=== PATIENT | female | born 1955 | race Caucasian/White ===

== ENCOUNTER 2018-03-11 15:30 | Emergency (ER) | payer MEDICARE, MEDICAID, SELFPAY ==
[2018-03-11 15:44] VITALS: BP 135/66; PULSE 94; RESP 16; TEMP 36.6; O2SAT 100
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
--- NOTE | 2018-03-11 16:05 | DI.REPORT_ITS ---
SYMPTOM/DIAGNOSIS: FALL PAIN ALONG RT SIDE OF MID THORACIC SPINE LEFT HUMERUS: The humeral head is not ideally imaged. There is mild artifact. No fracture is identified. Degenerative changes are seen at the elbow and glenoid. IMPRESSION: Degenerative changes. No acute abnormality. THORACIC SPINE: AP and cross table lateral views are performed. The lateral views are suboptimal due to patient arm positioning over the spine. No gross fracture is identified. Degenerative changes are noted greatest on the right side of the spine in the mid to lower thoracic region. The visualized portions of the lungs appear clear. IMPRESSION: A limited exam. No gross evidence of a fracture.
[2018-03-11] MEDS: oxyCODONE 5 MG TAB PO (16:48)
--- NOTE | 2018-03-11 17:38 | DI.VRAD_ITS ---
EXAM: XR Thoracic Spine, 3 Views CLINICAL HISTORY: 62 years old, female; Pain and injury or trauma; Fall; Initial encounter; Blunt trauma (contusions or hematomas); Pain in thoracic spine; Other: Mid thoracicspine; Injury date: 03/11/2018 TECHNIQUE: Frontal, lateral and swimmer's views of the thoracic spine. COMPARISON: No relevant prior studies available. FINDINGS: Vertebrae: Slightly suboptimal evaluation of the thoracic spine on the lateral exam secondary to crosstable technique. No displaced fracture or subluxation identified. If there is a continued clinical concern for thoracic spine fracture then assessed with CT scan should be considered. Disc spaces: Mild degenerative changes throughout the thoracic spine. Soft tissues: Unremarkable. IMPRESSION: No fracture identified. Slightly suboptimal examination secondary to crosstable lateral technique. If there is a continued clinical concern for thoracic fracture then assessed with CT scan should be considered. Dictated and Authenticated by: Robert Estrada MD. Ordering:IONA PUTNAM MD
--- NOTE | 2018-03-11 17:41 | DI.VRAD_ITS ---
EXAM: XR Left Humerus, 2 or More Views CLINICAL HISTORY: 62 years old, female; Injury or trauma; Fall; Initial encounter; Sprain or strain; Humerus; Left; Injury date: 03/11/2018 TECHNIQUE: Frontal and lateral views of the left humerus. COMPARISON: CR - RIGHT HUMERUS 2017-03-20 05:29 FINDINGS: Bones/joints: Tiny lucent line at the coronoid process of the ulna seen on the AP view may be secondary to a nondisplaced fracture. Correlate clinically with pain at the site. No other evidence of fracture or dislocation is seen. Soft tissues: Unremarkable. IMPRESSION: Tiny lucent line at the coronoid process of the ulna seen on the AP view may be secondary to a nondisplaced fracture. Dictated and Authenticated by: Robert Estrada MD. Ordering:IONA PUTNAM MD
--- NOTE | 2018-03-11 17:48 | DI.RPTCT_ITS ---
SYMPTOMS/DIAGNOSIS: SEVERE MIDLINE PAIN OVER T5-T7 S/P FALL CT OF THE THORACIC AND LUMBAR SPINE: CT OF THE THORACIC SPINE: Comparison is made with plain films of the thoracic spine dated March,. There is no evidence of fracture. There are degenerative disc changes with osteophytes seen greater on the right side on the mid to lower thoracic levels. There is no paraspinal hematoma. No rib fractures identified. The visualized portions of the lungs appear clear. IMPRESSION: Degenerative changes. No acute abnormality. CT OF THE LUMBAR SPINE: There is no evidence of an acute fracture. There are degenerative disc changes at L2-3 through L4-5. There are facet joint degenerative changes at the same levels. There is mild anterolisthesis at L3-4, secondary to degenerative changes. Endplate osteophytes are seen at these levels. There is mild disc bulging. There is a degenerative scoliosis that is mild.
--- NOTE | 2018-03-11 18:45 | DI.VRAD_ITS ---
EXAM: CT Thoracic Spine Without Intravenous Contrast CLINICAL HISTORY: 62 years old, female; Pain; Other: Mid back jennifer; Pain in thoracic spine TECHNIQUE: Axial computed tomography images of the thoracic spine without intravenous contrast. Coronal and sagittal reformatted images were created and reviewed. COMPARISON: No relevant prior studies available. FINDINGS: Vertebrae: Degenerative disc disease and facet arthrosis within the visualized portions of the cervical spine. Mild degenerative spondylosis of the thoracic spine. No fracture. No subluxation. Discs/spinal canal/neural foramina: See above. Soft tissues: Unremarkable. Gallbladder and bile ducts: Status post cholecystectomy. Other findings: Normal bone density. IMPRESSION: 1. Degenerative spondylosis of the cervical and thoracic spine. 2. No fracture. EXAM: CT Lumbar Spine Without Intravenous Contrast CLINICAL HISTORY: 62 years old, female; Pain; Other: Mid back jennifer; Pain in thoracic spine TECHNIQUE: Axial computed tomography images of the lumbar spine without intravenous contrast. Coronal and sagittal reformatted images were created and reviewed. COMPARISON: CR - THORACIC SPINE 2018-03-11 16:57 FINDINGS: Vertebrae: Mild scoliosis of the lumbar spine. Degenerative disc disease and facet arthrosis throughout the lumbar spine. Minimal retrolisthesis of L3, likely degenerative. No fracture. Discs/spinal canal/neural foramina: See above. Soft tissues: Unremarkable. Gallbladder and bile ducts: Status post cholecystectomy. IMPRESSION: 1. Degenerative spondylosis of the lumbar spine. 2. Minimal retrolisthesis of L3, likely degenerative. 3. No fracture. Dictated and Authenticated by: Robert Estrada MD. Ordering:IONA PUTNAM MD
== END 2018-03-11 19:15 | disposition home or self-care (01) ==
PROVIDERS: Emergency Provider Emergency Medicine; PCP Family Medicine
DX: S20.222A Contusion of left back wall of thorax, initial encounter (principal); S40.022A Contusion of left upper arm, initial encounter; Y04.2XXA Assault by strike against or bumped into by another person, initial encounter; I10 Essential (primary) hypertension; E11.9 Type 2 diabetes mellitus without complications; Z79.84 Long term (current) use of oral hypoglycemic drugs
CPT/HCPCS: 72072; 72128; 72131; 73060; 93005; 99284; 99285; 93010

== ENCOUNTER → 2018-03-24 11:10 | Outpatient (REF) | payer MEDICARE, MEDICAID, SELFPAY ==
--- NOTE | 2018-03-24 11:10 | PAPFT_PTH ---
PATIENT: Yecenia Rosenberg LOC: [facility] U#:[id number] AGE/SX: 69/F ROOM: RE03/24/[address]: ANUJA White : 1955 BED: DIS: SPEC #: [id number] RECD: 03/27/18 12:50 STATUS: SEAN REQ #: [id number] ANTOINE: 03/24/18 11:[address]: Ami Valencia DEPT: [facility], [facility] Cytology RECD BY: Sheri Santacruz ENTERED: 03/27/18 12:50 SP TYPE: PAPFT OTHR DR: Alexis Leal MD Tissues: 1 - CX/ENDOCX FOR PAP SMEARS Procedures: PAP THIN PREP/[facility] Screening Comments: [id number]
== END ==
LOC: LBN 11:10
PROVIDERS: PCP Family Medicine; Visit Provider Nurse Practitioner Family
DX: Z12.4 Encounter for screening for malignant neoplasm of cervix (principal)
CPT/HCPCS: 88142

== ENCOUNTER 2018-04-13 10:52 | Outpatient (CLI) | payer MEDICARE, MEDICAID, SELFPAY ==
[2018-04-13 13:04] LABS: Hemoglobin A1C 8.1 % (4.5-6.2)
== END 2018-04-13 11:12 ==
PROVIDERS: PCP Family Medicine; Visit Provider Family Medicine
DX: E11.9 Type 2 diabetes mellitus without complications (principal)
CPT/HCPCS: 36415; 83036

== ENCOUNTER 2018-06-02 00:24 | Outpatient (CLI) | payer MEDICARE, MEDICAID, SELFPAY ==
--- NOTE | 2018-06-02 09:25 | DI.MAMMO_ITS ---
SYMPTOM/DIAGNOSIS: SCREENING, Z12.31 MAMMOGRAM: Mammograms were interpreted according to the usual protocol including computer analysis with CAD system, tomosynthesis and C view imaging. Comparison with prior examinations. Breast density A. No masses or microcalcifications are seen. There is nothing to suggest malignancy. IMPRESSION: Negative mammogram. Routine screening is recommended. Category I. MQSA ASSESSMENT OF FINDINGS: Negative. Category 1. Patient will receive a letter notifying them of these results. BI-RAD category A. The breasts are almost entirely fatty.
== END 2018-06-02 00:44 ==
PROVIDERS: PCP Family Medicine; Visit Provider Family Medicine
DX: Z12.31 Encounter for screening mammogram for malignant neoplasm of breast (principal)
CPT/HCPCS: 77063; 77067

== ENCOUNTER 2018-06-30 10:27 | Outpatient (CLI) | payer MEDICARE, MEDICAID, SELFPAY ==
--- NOTE | 2018-06-30 10:42 | DI.RAD_ITS ---
SYMPTOM/DIAGNOSIS: RT KNEE PAIN, LOCKING RIGHT KNEE: Three views were obtained. There is minimal hypertrophic spurring of the bones of the knee. Cartilaginous joint spaces appear fairly well maintained. No other bony abnormality is seen.
== END 2018-06-30 10:47 ==
PROVIDERS: PCP Family Medicine; Referring Provider Family Medicine; Visit Provider Student in an Organized Health Care Education/Training Program
DX: M25.561 Pain in right knee (principal); M23.91 Unspecified internal derangement of right knee; M75.102 Unspecified rotator cuff tear or rupture of left shoulder, not specified as traumatic
CPT/HCPCS: 73562; 99213; 99214

== ENCOUNTER 2018-07-06 00:22 | Outpatient (CLI) | payer MEDICARE, MEDICAID, SELFPAY ==
--- NOTE | 2018-07-06 13:59 | DI.MRI_ITS ---
SYMPTOMS/DIAGNOSIS: RIGHT KNEE INTERNAL DERANGEMENT, M23.91 MRI OF THE RIGHT KNEE: Comparison is made with June,. Fat-suppressed T2 axial, T1 and fat- suppressed T2 coronal, proton density and fat suppressed T2 sagittal and proton density oblique sagittal sequences were performed. There is edema around the anterior cruciate ligament, which appears disrupted near the femoral attachment. There is some waviness of the posterior cruciate ligament, but no evidence of abnormal signal. The collateral ligaments and extensor mechanisms appear intact. Both menisci appear peripherally displaced, consistent with degenerative changes. There is some amorphous signal in the body of the lateral meniscus, which could be degenerative. No focal meniscal tears identified. There are small lobulated fluid collections near the medial meniscus, which could represent meniscal cysts. An additional meniscal cyst or ganglion is seen posterior to the posterior cruciate ligament. There is some edema in the subcutaneous fat anteriorly. IMPRESSION: ACL tear. Degenerative changes of the menisci, lateral greater than medial. No definite meniscal tear is seen. There is no evidence of a bony contusion.
== END 2018-07-06 00:42 ==
PROVIDERS: PCP Family Medicine; Visit Provider Physician Assistant
DX: M23.91 Unspecified internal derangement of right knee (principal); S83.511A Sprain of anterior cruciate ligament of right knee, initial encounter; M17.11 Unilateral primary osteoarthritis, right knee; M25.561 Pain in right knee
CPT/HCPCS: 73721

== ENCOUNTER 2018-08-26 15:09 | Emergency (ER) | payer MEDICARE, MEDICAID, SELFPAY ==
[2018-08-26 15:39] VITALS: BP 123/72; PULSE 78; RESP 17; TEMP 36.3; O2SAT 93
--- NOTE | 2018-08-26 17:33 | ED.GENADUL_ITS ---
Discharge Plan Disposition Patient Disposition: HOME Discharge Details Chief Complaint: RespSymp Clinical Impression: Influenza-like illness Reason For Visit: resp illness Primary Care Provider: Alexis Leal ED Provider: Kofi Crooks Home Meds and New Rx's Prescriptions: New albuterol sulfate 90 mcg/actuation HFA aerosol inhaler 1 puff IH Q4H PRN (Reason: shortness of breath or wheezing) Qty: 6.7 RF: 0 Continued metformin [Glucophage] 500 mg tablet 500 mg PO BID Qty: 180 RF: 4 OneTouch Ultra Test 1 EACH strip 1 strip Miscellaneous DAILY Qty: 100 RF: 3 lancets [OneTouch UltraSoft Lancets] 1 EACH misc 1 unit Sub-Q DAILY Qty: 100 RF: 3 glipizide 10 mg tablet extended release 24hr 20 mg PO DAILY Qty: 90 RF: 4 venlafaxine 75 mg capsule,extended release 24hr 75 mg PO DAILY Qty: 90 RF: 4 amlodipine 5 mg tablet 5 mg PO DAILY Qty: 90 RF: 4 chlorthalidone 25 mg tablet 25 mg PO DAILY Qty: 90 RF: 4 pravastatin [Pravachol] 40 mg tablet 40 mg PO DAILY Qty: 90 RF: 4 No Action benzonatate [Tessalon Perles] 100 mg capsule 100 mg PO TID PRN (Reason: cough) Qty: 14 RF: 0 Discharge Instructions Instructions: Influenza (ED) Additional Instructions: Please drink plenty of fluids to stay hydrated. Allow for plenty of rest. Please follow-up with your primary care physician. Call for an appointment. Return to the emergency department immediately for any worsening or new concerning symptoms. Referrals: Alexis Leal MD [Primary Care Provider] - Discharge Data Discharge Date/Time-TO BE ENTERED AT DEPARTURE: 08/26/18 18:00 Medical Decision Making 62-year-old female with history of diabetes and hypertension here with body aches, cough and congestion over the past 6 days. Patient notes that her significant other was recently tested positive for flu. Her daughter is also sick with same syndrome. Patient is saturating well in no respiratory distress. No signs of pneumonia. I suspect the patient has influenza. She is outside window for Tamiflu. Supportive care was advised. She does note that she has had some intermittent wheeze. I will prescribe albuterol inhaler. Usual and customary discharge instructions were provided. Patient was encouraged to follow-up with her primary care physician and to return should have any worsening or new concerning symptoms per HPI General Mode of arrival: ambulatory . Date/Time Provider Initiated Documentation: 08/26/18 17:15 . Limitations to Documentation: no limitations . Information obtained by: patient . HPI Narrative: 62-year-old female with history of diabetes and hypertension here with body aches, cough and congestion over the past 6 days. Patient notes that her significant other was recently tested positive for flu. Her daughter is also sick with same syndrome. Symptoms are moderate. No modifiers. She has had some interrmittent wheeze. No SOB currently. Related Data Home Medications Medication Instructions Recorded Confirmed OneTouch Ultra Test #100 strip 06/17/14 09/01/18 lancets [OneTouch UltraSoft #100 ea 06/17/14 09/01/18 Lancets] metformin 500 mg tablet 500 mg PO BID #180 tab 04/13/18 09/01/18 glipizide ER 10 mg tablet, 20 mg PO DAILY #90 tab-cap 06/29/18 09/01/18 extended release 24 hr venlafaxine ER 75 mg 75 mg PO DAILY #90 tab-cap 06/29/18 09/01/18 capsule,extended release 24 hr amlodipine 5 mg tablet 5 mg PO DAILY #90 tab-cap 07/11/18 09/01/18 chlorthalidone 25 mg tablet 25 mg PO DAILY #90 tab-cap 07/11/18 09/01/18 pravastatin 40 mg tablet 40 mg PO DAILY #90 tab-cap 07/12/18 09/01/18 albuterol sulfate 1 puff IH Q4H PRN #6.7 gm 08/26/18 09/01/18 benzonatate 100 mg capsule 100 mg PO TID PRN #14 cap 09/01/18 09/01/18 Previous Rx's Medication Instructions Recorded metformin 500 mg tablet 500 mg PO BID #180 tab 04/13/18 glipizide ER 10 mg tablet, 20 mg PO DAILY #90 tab-cap 06/29/18 extended release 24 hr venlafaxine ER 75 mg 75 mg PO DAILY #90 tab-cap 06/29/18 capsule,extended release 24 hr amlodipine 5 mg tablet 5 mg PO DAILY #90 tab-cap 07/11/18 chlorthalidone 25 mg tablet 25 mg PO DAILY #90 tab-cap 07/11/18 pravastatin 40 mg tablet 40 mg PO DAILY #90 tab-cap 07/12/18 albuterol sulfate 1 puff IH Q4H PRN #6.7 gm 08/26/18 benzonatate 100 mg capsule 100 mg PO TID PRN #14 cap 09/01/18 Allergies Allergy/AdvReac Type Severity Reaction Status Date / Time Penicillins Allergy Severe Unverified 09/01/18 10:27 Tetanus Vaccines and Toxoid Allergy Intermediate Unverified 09/01/18 10:27 [Tetanus Vaccines & Toxoid] lisinopril AdvReac Intermediate COUGH Unverified 09/01/18 10:27 General Stated Complaint: RespSymp NICOLE: 4 Review of Systems Review of Systems All systems reviewed & are unremarkable except as noted in HPI and below PFSH Medical History Left rotator cuff tear (Chronic) Tear of right rotator cuff (Chronic 06/10/17) Skin sensation disturbance (Chronic) Low back pain (Chronic 06/30/03) 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 Father No problems noted. Sister Diabetes Brother Heart disease Social History what type of physical activity do you participate in: none Smoking and Tabacco status: Never alcohol intake: never additional social history: Decreased vision Exam Const General: cooperative and no acute distress HENMT Head: normocephalic and atraumatic Mouth: moist mucous membranes Eyes Conjunctivae: normal conjunctivae Sclera: normal sclerae EOM: EOM intact bilaterally Neck Neck: trachea midline and supple Resp Effort & Inspection: normal respiratory effort, able to speak in complete sentences and no respiratory distress Auscultation: clear to auscultation bilaterally, no rales, no rhonchi and no w heezes Cardio Jugular venous pressure: no JVD Rate: regular rate and not tachycardic Rhythm: regular rhythm GI Palpation: soft, not firm, no guarding, no masses, not rigid and nontender Skin General skin exam: no rashes or lesions noted Neuro General: alert, awake, oriented x3 and tone normal Extrem General: no edema Psych Appearance: grossly normal Mental Status: mental status grossly normal Speech and Movement: speech and movement normal Course Vital Signs Temperature 36.3 C L 08/26/18 15:39 Pulse 78 08/26/18 15:39 Respiratory Rate 17 08/26/18 15:39 Blood Pressure 123/72 08/26/18 15:39 Pulse Oximetry 93 L 08/26/18 15:39 Temperature 36.3 C L 08/26/18 15:39 Temperature Source Temporal Artery Scan 08/26/18 15:39 Pulse 78 08/26/18 15:39 Respiratory Rate 17 08/26/18 15:39 Respiratory Effort 08/26/18 15:42 Blood Pressure 123/72 08/26/18 15:39 Pulse Oximetry 93 L 08/26/18 15:39 Oxygen Delivery Method Room Air 08/26/18 15:39 Oxygen Flow Rate 0 08/26/18 15:39
== END 2018-08-26 18:00 | disposition home or self-care (01) ==
PROVIDERS: Emergency Provider Student in an Organized Health Care Education/Training Program; PCP Family Medicine
DX: R05 Cough (principal); J11.1 Influenza due to unidentified influenza virus with other respiratory manifestations; E11.9 Type 2 diabetes mellitus without complications; Z79.84 Long term (current) use of oral hypoglycemic drugs; I10 Essential (primary) hypertension
CPT/HCPCS: 36416; 82947; 82962; 99283

== ENCOUNTER 2018-11-07 09:44 | Outpatient (CLI) | payer MEDICARE, MEDICAID, SELFPAY ==
--- NOTE | 2018-11-07 09:10 | DI.RAD_ITS ---
SYMPTOM/DIAGNOSIS: RT HIP PAIN,M25.551 RIGHT HIP AND PELVIS: Two views. The right hip joint is well maintained. The bones are intact and normally mineralized. The sacroiliac joints and symphysis pubis are unremarkable. Mild degenerative changes are seen at the L 4-5 disc space. Mild degenerative changes are seen in the left hip. IMPRESSION: Negative right hip. Mild degenerative changes in the lumbar spine and left hip.
[2018-11-07 12:48] LABS: Hemoglobin A1C 7.9 % (4.5-6.2)
== END 2018-11-07 10:04 ==
PROVIDERS: PCP Family Medicine; Visit Provider Family Medicine
DX: M25.551 Pain in right hip (principal); E11.9 Type 2 diabetes mellitus without complications
CPT/HCPCS: 36415; 73502; 83036

== ENCOUNTER 2019-05-17 07:00 | Outpatient (CLI) | payer OTHER, MEDICAID, SELFPAY ==
[2019-05-17 13:27] LABS: Anion Gap 10.6 mmol/L (3-11); BUN 13 mg/dL (7-18); CO2 30.4 mmol/L (21.0-32.0); Calcium 9.4 mg/dL (8.5-10.1); Chloride 97 mmol/L (98-107); Glucose 337 mg/dL (70-100); Potassium 3.4 mmol/L (3.5-5.1); Sodium 138 mmol/L (136-145)
== END 2019-05-17 07:20 ==
PROVIDERS: PCP Family Medicine; Visit Provider Family Medicine
DX: I10 Essential (primary) hypertension (principal)
CPT/HCPCS: 36415; 80048

== ENCOUNTER 2019-07-08 12:46 | Emergency (ER) | payer OTHER, MEDICAID, SELFPAY ==
[2019-07-08 12:49] VITALS: BP 130/84; PULSE 78; TEMP 36.5; O2SAT 97
--- NOTE | 2019-07-08 13:10 | ED.GENADUL_ITS ---
Discharge Plan Disposition Patient Disposition: HOME Condition: Stable Discharge Details Chief Complaint: Orthopedic Clinical Impression: Fracture of distal end of fibula Primary Care Provider: Alexis Leal ED Provider: Blaine Marcus Home Meds and New Rx's Prescriptions: No Action (DME) FreeStyle Kb 14 Day [place] Misc See Rx Instructions .ROUTE .MEDSUPPLY Qty: 1 RF: 4 (DME) FreeStyle Kb 14 Day Sensor Kit See Rx Instructions .ROUTE .MEDSUPPLY Qty: 1 RF: 6 (DME) lancets [OneTouch UltraSoft Lancets] 1 EACH misc 1 unit Sub-Q DAILY Qty: 100 RF: 3 venlafaxine 75 mg capsule,extended release 24hr 75 mg PO DAILY Qty: 90 RF: 4 amlodipine 5 mg tablet 5 mg PO DAILY Qty: 90 RF: 4 chlorthalidone 25 mg tablet 25 mg PO DAILY Qty: 90 RF: 4 pravastatin [Pravachol] 40 mg tablet 40 mg PO DAILY Qty: 90 RF: 4 gabapentin 100 mg capsule 100 mg PO TID Qty: 270 RF: 4 glipizide 10 mg tablet extended release 24hr 20 mg PO DAILY Qty: 90 RF: 4 potassium chloride 10 mEq tablet extended release 10 meq PO DAILY Qty: 90 RF: 4 (DME) blood-glucose meter [OneTouch Ultra2 Meter] Kit See Rx Instructions .ROUTE .MEDSUPPLY Qty: 1 RF: 0 (DME) OneTouch Ultra Blue Test Strip Strip See Rx Instructions .ROUTE .MEDSUPPLY Qty: 100 RF: 4 (DME) lancets [OneTouch Delica Lancets] 33 gauge misc See Rx Instructions .ROUTE DAILY Qty: 100 RF: 4 acyclovir 200 mg capsule 200 mg PO Q4H PRN (Reason: Herpes labialis) Qty: 35 RF: 6 metformin [Glucophage] 500 mg tablet 500 mg PO BID Qty: 180 RF: 4 albuterol sulfate 90 mcg/actuation HFA aerosol inhaler 1 puff IH Q4H PRN (Reason: shortness of breath or wheezing) Qty: 6.7 RF: 0 cyclobenzaprine 10 mg tablet 10 mg PO PRN PRN (Reason: muscle spasm) RF: 0 Discharge Instructions Instructions: Leg Fracture (ED) Additional Instructions: 1. Drink plenty of fluids. 2. Continue all medications as prescribed. 3. Acetaminophen 1000mg every 4 hours (up to 5 time a day) and/or ibuprofen 600mg every 6 hours as needed for fever or pain. 4. Wear Ortho walking boot until orthopedic follow-up. 5. Use crutches to avoid weightbearing. 6. Follow-up next week with Dr. faust Return to the Emergency Department (ED) if your condition worsens, does not improve as expected, or for ANY other concerns. Specifically, return if you have new or uncontrolled pain, worsening fever, difficulty breathing, vomiting, or are unable to drink fluids. Referrals: Turner Faust MD [ [facility] STAFF PHYSICIAN] - Medical Decision Making 63-year-old woman with a past medical history which includes diabetes and hypertension presents with acute left ankle pain after a mechanical fall. Exam significant for left lateral malleolus tenderness and associated soft tissue swelling. X-ray ordered and diagnostic for a displaced spiral oblique fracture of the distal fibula. Discussed findings with patient and her partner. Placed in an orthopedic walking boot and discharged home with a plan for outpatient orthopedic follow-up. Given usual and customary return instructions at time of discharge. Medical Records Medical records reviewed: Yes I reviewed the patient's medical records. Imaging Data Radiologic Study: Attestation: I personally reviewed and interpreted this imaging study as follows: Imaging: X-Ray (Left ankle) My impression: Displaced, spiral oblique distal fibular fracture Radiologist's impression: Same HPI 63-year-old woman with a past medical history which includes depression, diabetes, diabetic retinopathy, hypertension, and chronic low back pain. Presents with acute left ankle pain associated with tripping and falling at home. Describes carrying a heavy bag and inadvertently catching her left foot in a stationary object. She fell with her ankle initially inverting. She had immediate pain of the lateral portion of her ankle and was unable to bear weight without significant discomfort. Denies other significant injuries including no head impact, neck pain, other extremity injuries, chest pain, abdominal pain, or focal extremity weakness. General Date/Time Provider Initiated Documentation: 07/08/19 13:07 . Related Data Home Medications Medication Instructions Recorded Confirmed lancets [OneTouch UltraSoft #100 ea 06/17/14 05/17/19 Lancets] venlafaxine 75 mg capsule,extended 75 mg PO DAILY #90 tab-cap 06/29/18 07/08/19 release 24 hr amlodipine 5 mg tablet 5 mg PO DAILY #90 tab-cap 07/11/18 07/08/19 chlorthalidone 25 mg tablet 25 mg PO DAILY #90 tab-cap 07/11/18 07/08/19 pravastatin 40 mg tablet 40 mg PO DAILY #90 tab-cap 07/12/18 07/08/19 albuterol sulfate 1 puff IH Q4H PRN #6.7 gm 08/26/18 07/08/19 gabapentin 100 mg capsule 100 mg PO TID #270 cap 02/06/19 07/08/19 glipizide 10 mg tablet, extended 20 mg PO DAILY #90 tab-cap 04/17/19 07/08/19 release 24 hr flash glucose scanning reader #1 each 05/17/19 05/17/19 flash glucose sensor #1 each 05/17/19 05/17/19 potassium chloride 10 mEq 10 meq PO DAILY #90 tab 05/17/19 07/08/19 tablet,extended release blood sugar diagnostic #100 each 05/18/19 blood-glucose meter #1 each 05/18/19 lancets 33 gauge #100 each 05/18/19 acyclovir 200 mg capsule 200 mg PO Q4H PRN #35 cap 06/05/19 07/08/19 metformin 500 mg tablet 500 mg PO BID #180 tab 06/26/19 07/08/19 cyclobenzaprine 10 mg PO PRN PRN 07/08/19 07/08/19 Previous Rx's Medication Instructions Recorded venlafaxine 75 mg capsule,extended 75 mg PO DAILY #90 tab-cap 06/29/18 release 24 hr amlodipine 5 mg tablet 5 mg PO DAILY #90 tab-cap 07/11/18 chlorthalidone 25 mg tablet 25 mg PO DAILY #90 tab-cap 07/11/18 pravastatin 40 mg tablet 40 mg PO DAILY #90 tab-cap 07/12/18 albuterol sulfate 1 puff IH Q4H PRN #6.7 gm 08/26/18 gabapentin 100 mg capsule 100 mg PO TID #270 cap 02/06/19 glipizide 10 mg tablet, extended 20 mg PO DAILY #90 tab-cap 04/17/19 release 24 hr flash glucose scanning reader #1 each 05/17/19 flash glucose sensor #1 each 05/17/19 potassium chloride 10 mEq 10 meq PO DAILY #90 tab 05/17/19 tablet,extended release blood sugar diagnostic #100 each 05/18/19 blood-glucose meter #1 each 05/18/19 lancets 33 gauge #100 each 05/18/19 acyclovir 200 mg capsule 200 mg PO Q4H PRN #35 cap 06/05/19 metformin 500 mg tablet 500 mg PO BID #180 tab 06/26/19 Allergies Allergy/AdvReac Type Severity Reaction Status Date / Time Penicillins Allergy Severe Unverified 07/08/19 12:54 Tetanus Vaccines and Toxoid Allergy Intermediate Unverified 07/08/19 12:54 [Tetanus Vaccines & Toxoid] lisinopril AdvReac Intermediate COUGH Unverified 07/08/19 12:54 General Stated Complaint: Orthopedic NICOLE: 4 Review of Systems All systems reviewed & are unremarkable except as noted in HPI and below PFSH Medical History Carpal tunnel syndrome (Chronic) right Depressive disorder (Chronic) Diabetes mellitus (Chronic 11/30/12) Diabetic retinopathy (Chronic 06/30/06) Essential hypertension (Chronic 04/30/13) Hyperlipidemia (Chronic) 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) Left rotator cuff tear (Chronic) MRI on 03/28/18 shows full-thickness tear of anterior supraspinatus Low back pain (Chronic 06/30/03) Occult blood in stools (Inactive 06/30/06) Other dislocation of right shoulder joint, initial encounter (Inactive 03/28/17) Skin sensation disturbance (Chronic) right foot Tear of right rotator cuff (Chronic 06/10/17) Surgical History Cholecystectomy (~1995) History of bilateral ligation of fallopian tubes (Inactive) Ligation of fallopian tube Open Carpal Tunnel release Status post carpal tunnel release (Inactive) Status post cholecystectomy (Inactive) Status post tonsillectomy and adenoidectomy (Inactive) Tonsillectomy and adenoidectomy Family History Mother No problems noted. Father No problems noted. Sister Diabetes Brother Heart disease Social History Smoking/Tobacco Use Status: Never Alcohol Intake: never Drug use: Never What type of physical activity do you participate in: none Do you feel safe in your relationship?: Yes Additional Social history: Decreased vision Exam Narrative Exam Narrative: Nursing note and vital signs have been reviewed and noted. GENERAL: alert, active, no acute distress, well -hydrated, well-nourished HEENT: atraumatic/normocephalic, PERRLA, EOMI, conjunctiva clear, external ears/canals normal, nasal mucosa normal NECK: supple, full range of motion CARDIOVASCULAR: nl pulses, no edema PULMONARY: nl effort, no audible wheezing or stridor ABDOMEN: non-distended EXTREMITY: normal muscle tone, all joints normal except for left ankle and lower extremity:. No proximal fibular tenderness, no Achilles tenderness, no medial malleoli tenderness or swelling, no fifth metatarsal tenderness. No lateral posterior malleoli tenderness. However significant soft tissue swelling and anterior tenderness along the ATFL. NUERO: normal mentation, moving all extremities, normal stance and gait, PSYCH: alert and oriented SKIN: no new rashes or lesions Course Vital Signs Vital signs: Vital Signs Temperature 97.7 F 07/08/19 12:49 Pulse 78 07/08/19 12:49 Blood Pressure 130/84 07/08/19 12:49 Pulse Oximetry 97 07/08/19 12:49 Temperature 97.7 F 07/08/19 12:49 Temperature Source Skin 07/08/19 12:49 Pulse 78 07/08/19 12:49 Respiratory Effort Non-Labored 07/08/19 12:58 Blood Pressure 130/84 07/08/19 12:49 Blood Pressure Position Sitting 07/08/19 12:49 Pulse Oximetry 97 07/08/19 12:49 Oxygen Delivery Method Room Air 07/08/19 12:49 Oxygen Flow Rate 0 07/08/19 12:49 Pain Level 8 07/08/19 12:58
--- NOTE | 2019-07-08 13:25 | DI.RAD_ITS ---
EXAM: XR ANKLE LT COMPLETE INDICATION: Left ankle pain and swelling after fall/inversion. COMPARISON: No exams were available for comparison TECHNIQUE: 2D digital imaging was performed. FINDINGS: There is a fracture seen extending obliquely through the lateral malleolus to the level of the ankle mortise. There may be slight widening of the medial ankle mortise. No distal tibial fractures are id entified. No talar dome defect is seen. There are mild underlying degenerative changes. There are prominent heel spurs. IMPRESSION: Mildly displaced fracture of the lateral malleolus with slight widening of the medial ankle mortise.
--- NOTE | 2019-07-08 13:57 | DI.VRAD_ITS ---
PROCEDURE INFORMATION: Exam: XR Left Ankle Exam date and time: 07/08/2019 1:09 PM Age: 63 years old Clinical history: Injury or trauma; Initial encounter; Sprain or strain; Patient HX: Left ankle pain, swelling after fall/inversion TECHNIQUE: Imaging protocol: XR Left ankle. Views: 3 or more views. COMPARISON: No relevant prior studies available. FINDINGS: Bones/joints: Displaced spiral oblique fracture of the distal fibula. Degenerative changes in the tarsal bones Soft tissues: Lateral malleolar soft tissue swelling. IMPRESSION: 1. Displaced spiral oblique fracture of the distal fibula. 2. Lateral malleolar soft tissue swelling. Dictated and Authenticated by: Clari Newton MD. Ordering:ZEB Valladares MD
== END 2019-07-08 14:20 | disposition home or self-care (01) ==
PROVIDERS: Emergency Provider Emergency Medicine; PCP Family Medicine
DX: S82.442A Displaced spiral fracture of shaft of left fibula, initial encounter for closed fracture (principal); X50.9XXA Other and unspecified overexertion or strenuous movements or postures, initial encounter; E11.319 Type 2 diabetes mellitus with unspecified diabetic retinopathy without macular edema; I10 Essential (primary) hypertension; Z79.84 Long term (current) use of oral hypoglycemic drugs
CPT/HCPCS: 29515; 99284; 73610; 99283; E0114; L4361

== ENCOUNTER 2019-07-23 10:24 | Outpatient (CLI) | payer OTHER, MEDICAID, SELFPAY ==
--- NOTE | 2019-07-23 10:22 | DI.RAD_ITS ---
EXAM: XR ANKLE LT COMPLETE INDICATION: L ankle fx. COMPARISON: XR ANKLE LT COMPLETE from 07/08/2019 TECHNIQUE: 2D digital imaging was performed. FINDINGS: There has been no change in alignment of the distal fibular fracture. There does appear to be wideni ng of the medial ankle mortise. No new fracture or dislocation is present. There is soft tissue swe lling about the ankle. There are again seen prominent heel spurs. IMPRESSION: Stable left ankle.
== END 2019-07-23 10:44 ==
PROVIDERS: PCP Family Medicine; Referring Provider Family Medicine; Visit Provider Student in an Organized Health Care Education/Training Program
DX: S82.832A Other fracture of upper and lower end of left fibula, initial encounter for closed fracture; X50.9XXA Other and unspecified overexertion or strenuous movements or postures, initial encounter
CPT/HCPCS: 99214; 73610

== ENCOUNTER 2019-08-06 14:22 | Outpatient (CLI) | payer OTHER, MEDICAID, SELFPAY ==
--- NOTE | 2019-08-06 13:12 | DI.RAD_ITS ---
EXAM: XR ANKLE LT COMPLETE INDICATION: f/u fracture. COMPARISON: XR ANKLE LT COMPLETE from 07/23/2019 TECHNIQUE: 2D digital imaging was performed. FINDINGS: There has been no change in the alignment of the previously noted lateral malleolar fracture. Promin ent heel spurs are again noted. There is a small defect of the lateral talar dome which also appears unchanged. No ankle mortise widening is demonstrated on the current exam.
== END 2019-08-06 14:42 ==
PROVIDERS: PCP Family Medicine; Referring Provider Family Medicine; Visit Provider Student in an Organized Health Care Education/Training Program
DX: S82.832D Other fracture of upper and lower end of left fibula, subsequent encounter for closed fracture with routine healing (principal); M77.32 Calcaneal spur, left foot; X58.XXXD Exposure to other specified factors, subsequent encounter
CPT/HCPCS: 99213; 73610

== ENCOUNTER 2019-09-03 14:48 | Outpatient (CLI) | payer OTHER, MEDICAID, SELFPAY ==
--- NOTE | 2019-09-03 14:08 | DI.RAD_ITS ---
EXAM: XR ANKLE LT COMPLETE INDICATION: f/u fracture. COMPARISON: No exams were available for comparison TECHNIQUE: 2D digital imaging was performed. FINDINGS: There has been no change in alignment of the fracture involving the lateral malleolus. There has dev eloped some callus about the fracture best appreciated on the lateral view. There is unchanged widen ing of the ankle joint medially. No new fracture or dislocation is seen. The soft tissue swelling a bout the ankle has slightly decreased.
== END 2019-09-03 15:08 ==
PROVIDERS: PCP Family Medicine; Referring Provider Family Medicine; Visit Provider Student in an Organized Health Care Education/Training Program
DX: S82.442D Displaced spiral fracture of shaft of left fibula, subsequent encounter for closed fracture with routine healing (principal); S82.832G Other fracture of upper and lower end of left fibula, subsequent encounter for closed fracture with delayed healing; X58.XXXD Exposure to other specified factors, subsequent encounter
CPT/HCPCS: 99213; 73610; L1902

== ENCOUNTER 2019-12-21 11:42 | Outpatient (CLI) | payer OTHER, MEDICAID, SELFPAY ==
--- NOTE | 2019-12-21 10:15 | DI.RAD_ITS ---
EXAM: XR ANKLE LT COMPLETE CLINICAL HISTORY: F/U FRACTURE TECHNIQUE: 2D digital imaging was performed. COMPARISON: CR XR ANKLE LT COMPLETE from 09/03/2019 FINDINGS: BONES: The distal fibular fracture appears to be well-healed. No bony destructive lesion is seen. Th ere is a large spur at the plantar surface of the calcaneus. No new fracture or dislocation is prese nt. JOINTS:The ankle mortise is normally aligned. SOFT TISSUE: Normal. IMPRESSION: Healed fracture of the distal left fibula. DATA REPOSITORY: RADIATION DOSE DELIVERED:
== END 2019-12-21 12:02 ==
PROVIDERS: PCP Nurse Practitioner Family; Referring Provider Nurse Practitioner Family; Visit Provider Student in an Organized Health Care Education/Training Program
DX: S82.442D Displaced spiral fracture of shaft of left fibula, subsequent encounter for closed fracture with routine healing (principal); S82.832D Other fracture of upper and lower end of left fibula, subsequent encounter for closed fracture with routine healing; X58.XXXD Exposure to other specified factors, subsequent encounter
CPT/HCPCS: 99213; 73610

== ENCOUNTER 2020-01-17 04:39 | Outpatient (CLI) | payer OTHER, MEDICAID, SELFPAY ==
[2020-01-17 10:50] LABS: Hemoglobin A1C 8.5 % (3.8-5.6)
== END 2020-01-17 04:59 ==
PROVIDERS: PCP Nurse Practitioner Family; Visit Provider Family Medicine
DX: E11.9 Type 2 diabetes mellitus without complications (principal)
CPT/HCPCS: 36415; 83036

== ENCOUNTER 2020-04-18 23:30 | Outpatient (REF) | payer OTHER, MEDICAID, SELFPAY ==
[2020-04-18 21:32] LABS: ALT 53 U/L (14-59); AST 47 U/L (15-37); Albumin 3.9 g/dL (3.4-5.0); Alkaline Phosphatase 86 U/L (46-116); Anion Gap 10.4 mmol/L (3-11); BUN 14 mg/dL (7-18); Bilirubin, Total 0.5 mg/dL (0.2-1.0); CO2 28.6 mmol/L (21.0-32.0); CREATININE 0.79 mg/dL (0.55-1.02); Calcium 9.3 mg/dL (8.5-10.1); Calculated LDL 58 mg/dL (<100); Chloride 98 mmol/L (98-107); Cholesterol 133 mg/dL (<200); Glucose 297 mg/dL (74-106); HDL Cholesterol 41 mg/dL (40-60); Potassium 3.4 mmol/L (3.5-5.1); Sodium 137 mmol/L (136-145); Total Protein 7.6 g/dL (6.4-8.2); Triglyceride 170 mg/dL (<150)
[2020-04-18 21:34] LABS: Hemoglobin A1C 7.5 % (<5.7)
== END 2020-04-18 23:50 ==
LOC: LBN 23:30
PROVIDERS: PCP Nurse Practitioner Family; Visit Provider Nurse Practitioner Family
DX: E11.9 Type 2 diabetes mellitus without complications (principal)
CPT/HCPCS: 80053; 80061; 83036

== ENCOUNTER 2020-10-08 02:42 | Outpatient (CLI) | payer OTHER, MEDICAID, SELFPAY ==
--- NOTE | 2020-10-08 16:26 | DI.MAMMO_ITS ---
EXAM: MG MAMMO SCREENING CLINICAL HISTORY: screening,Z12.39 TECHNIQUE: Bilateral full field digital CC and MLO mammographic images were obtained with 3D tomosyn thesis and utilizing computer aided detection (CAD). COMPARISON: Available for comparison. FINDINGS: Masses/Architectural Distortion: None seen. Microcalcifications: No suspicious pleomorphic-type are seen. There have developed calcifications in the upper half of the left breast since the prior examination. Skin Thickening/Nipple Retraction: None. IMPRESSION: 1. New calcifications seen in the upper half of the left breast. 2. Evaluation with spot compression views and a left breast ultrasound of the upper inner and upper o uter quadrants are recommended. BI-RADS Category 0 - Assessment Incomplete: Need additional imaging evaluation Breast Density - Category B - Scattered areas of fibroglandular density Breast density category C or D implies that the patient has dense breast tissue. Dense breast tissue is very common and is not abnormal but dense breast tissue can make it harder to find cancer on a ma mmogram. Also, dense breast tissue may increase their breast cancer risk. This information about the result of the mammogram report was provided to the patient to raise their awareness. Use this report when you speak with the patient about their risks for breast cancer, which includes their family hist ory. At that time, you may recommend for more screening tests (Ultrasound or MRI) as they might be us eful based on their risk. A negative radiographic report should not delay biopsy if a dominant or clinically suspicious mass is present. Up to ten percent of cancers are not identified on mammography. A negative report may reinforce clinical impression. Adenosis and dense breasts may obscure an underlying neoplasm. False positive reports average 6 to 10%. Patient will receive a letter notifying them of these results.
== END 2020-10-08 03:02 ==
PROVIDERS: PCP Nurse Practitioner Family; Visit Provider Nurse Practitioner Family
DX: Z12.31 Encounter for screening mammogram for malignant neoplasm of breast (principal); R92.1 Mammographic calcification found on diagnostic imaging of breast
CPT/HCPCS: 77063; 77067

== ENCOUNTER 2020-10-15 01:07 | Outpatient (CLI) | payer OTHER, MEDICAID, SELFPAY ==
--- NOTE | 2020-10-15 | DI.US_ITS ---
EXAM: US BREAST LT COMPLETE CLINICAL HISTORY: F/U MAMMO, NEW CALCIFICATIONS. TECHNIQUE: Ultrasound the left breast was performed. COMPARISON: Prior mammograms were reviewed. . Most recent mammogram 10/08/2020 as well as today's d iagnostic images of the left breast FINDINGS: There is a solitary finding which is a 5 millimeter microcyst at the 10 o'clock position. No solid lesions seen. IMPRESSION: Solitary 5 millimeter microcyst at the 10 o'clock position No solid lesions seen Appropriate follow-up is repeat left breast mammogram in 6 months to ensure stability of the new micr ocalcifications. Findings are recommendations were discussed by myself with the patient today. BI-RADS Category 3 - 6 month - Probably Benign Finding: Recommend follow-up mammography in 6 months Breast Density - Category B - Scattered areas of fibroglandular density Breast density Category C or D implies that the patient has dense breast tissue. Dense breast tissue can make it harder to find cancer on a mammogram. Dense breast tissue is also associated with an incr eased risk of breast cancer. This information about the result of the mammogram report was provided to the patient to raise their awareness. Use this report when you speak with the patient about their risks for breast cancer, which includes their family history. At that time, you may recommend additional screening tests (Ultrasoun d or MRI) as these tests may add significant information. A negative radiographic report should not delay biopsy if a dominant or clinically suspicious mass is present. Up to ten percent of cancers are not identified on mammography. A negative report may reinforce clinical impression. Adenosis and dense breasts may obscure an underlying neoplasm. False positive reports average 6 to 10%. Patient will receive a letter notifying them of these results.
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
== END 2020-10-15 01:27 ==
PROVIDERS: PCP Nurse Practitioner Family; Visit Provider Nurse Practitioner Family
DX: R92.0 Mammographic microcalcification found on diagnostic imaging of breast (principal); N60.02 Solitary cyst of left breast; R92.8 Other abnormal and inconclusive findings on diagnostic imaging of breast
CPT/HCPCS: 76642; 77063; 77067

== ENCOUNTER 2020-12-16 01:53 | Outpatient (CLI) | payer OTHER, MEDICAID, SELFPAY ==
--- NOTE | 2020-12-16 07:45 | DI.DEXA_ITS ---
Exam(s) XR DEXA BONE DENSITY W/WO KWAME EXAM: XR DEXA BONE DENSITY W/WO KWAME CLINICAL HISTORY: assess bone density,SCREENING FOR OSTEOPOROSIS IN POSTMENOPAUSAL WOMAN, TECHNIQUE: Routine DEXA evaluation of the lumbar spine, hip, or forearm. COMPARISON: CR XR hip RT complete AP pelvis from 11/07/2018 FINDINGS: Performed on a Hologic unit. Lateral image: No compression fracture evident. Lumbar Spine total T-score: 3.4 Hip total T-score:2.0. Independent reading at the femoral neck yields a T-score of 1.1. Forearm total T-score: 0.6 IMPRESSION: Bone mineral density measures in the normal range. Fracture risk is low. Note: Any spine fracture indicates 5x risk for subsequent spine fracture and 2x risk for subsequent h ip fracture. World Health Organization criteria for BMD interpretation classify patients: Normal...... T- Score at or above -1.0 Osteopenic... T- Score between -1.0 and -2.5 Osteoporosis... T-Score at or below -2.5
== END 2020-12-16 02:13 ==
PROVIDERS: PCP Nurse Practitioner Family; Visit Provider Nurse Practitioner Family
DX: Z13.820 Encounter for screening for osteoporosis (principal); Z78.0 Asymptomatic menopausal state
CPT/HCPCS: 77080

== ENCOUNTER 2021-06-15 17:57 | Outpatient (REF) | payer MEDICARE, MEDICAID, SELFPAY ==
[2021-06-15 21:22] LABS: COMMENT (LAB VIEW ONLY) 106.52 mg/dL; Microalb ug/mg Crea 5.1 ug/mg Cr
== END 2021-06-15 17:58 | disposition home or self-care (01) ==
LOC: NCHCN 17:57
PROVIDERS: PCP Nurse Practitioner Family; Visit Provider Nurse Practitioner Family
DX: E11.9 Type 2 diabetes mellitus without complications (principal)
CPT/HCPCS: 82043; 82570

== ENCOUNTER 2021-10-12 00:44 | Outpatient (CLI) | payer MEDICARE, MEDICAID, SELFPAY ==
--- NOTE | 2021-10-12 11:20 | DI.MAMMO_ITS ---
Exam(s) MAMMO SCREENING EXAM: MAMMO SCREENING CLINICAL HISTORY: screening,Z12.39 TECHNIQUE: Mammograms were interpreted according to the usual protocol including computer analysis w [employer] CAD system, tomosynthesis and C-view imaging. COMPARISON: 2013 through 2020 FINDINGS: The breasts are composed of scattered fibroglandular densities, Breast Density category B. No suspicious masses or suspicious microcalcifications are seen. No skin thickening or abnormal axillary lymph nodes are seen. There has been no significant change from prior exams. IMPRESSION: BI-RADS Category 1, Negative mammogram Yearly screening mammography is recommended. Breast Density - Category B, scattered fibroglandular densities. A negative radiographic report should not delay biopsy if a dominant or clinically suspicious mass is present. Up to ten percent of cancers are not identified on mammography. A negative report may reinforce clinical impression. Adenosis and dense breasts may obscure an underlying neoplasm. False positive reports average 6 to 10%. Patient will receive a letter notifying them of these results.
== END 2021-10-12 01:04 ==
PROVIDERS: PCP Nurse Practitioner Family; Visit Provider Nurse Practitioner Family
DX: Z12.31 Encounter for screening mammogram for malignant neoplasm of breast (principal)
CPT/HCPCS: 77063; 77067

== ENCOUNTER 2021-11-28 12:03 | Emergency (ER) | payer MEDICARE, OTHER, SELFPAY ==
[2021-11-28] VITALS (21 sets, daily range): BP systolic 119–148; BP diastolic 52–73; PULSE 62–78; RESP 12–23; TEMP 36.9–37.1; O2SAT 91–99
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
[2021-11-28 12:45] LABS: Abs Immature Grans 0.04 10^3/uL (0.0-0.06); Absolute Basophil Count 0.11 10^3/uL (0.0-0.2); Absolute Eosinophil Count 0.26 10^3/uL (0.0-0.7); Absolute Lymphocyte Count 2.74 10^3/uL (1.2-3.4); Absolute Monocyte Count 0.87 10^3/uL (0.1-0.8); Absolute Neutrophil Count 6.73 10^3/uL (1.2-6.7); Eosinophils % 2.4; HCT 44.7 % (36.0-46.0); HGB 14.4 g/dL (11.2-15.7); Immature Grans % 0.4; Lymphocytes % 25.5; MCH 29.8 pg (27.0-33.0); MCHC 32.2 % (32.0-36.0); MCV 92 fL (80-95); MPV 10.1 fL (8.0-11.0); Monocytes % 8.1; Neutrophils % 62.6; Platelet Count 305 10^3/uL (130-400); RBC 4.84 10^6/uL (3.93-5.22); RDW 12.3 % (11.7-14.6); RDW-SD 41.9 fL; WBC 10.75 10^3/uL (4.4-10.8)
[2021-11-28 13:00] LABS: ALT 25 U/L (14-59); AST 24 U/L (15-37); Albumin 3.5 g/dL (3.4-5.0); Alkaline Phosphatase 72 U/L (46-116); Anion Gap 5.5 mmol/L (3-11); BUN 11 mg/dL (7-18); Bilirubin, Total 0.5 mg/dL (0.2-1.0); CO2 29.5 mmol/L (21.0-32.0); CREATININE 0.7 mg/dL (0.55-1.02); Calcium 8.7 mg/dL (8.5-10.1); Chloride 104 mmol/L (98-107); Glucose 167 mg/dL (74-106); Potassium 3.9 mmol/L (3.5-5.1); Sodium 139 mmol/L (136-145); Total Protein 7.6 g/dL (6.4-8.2)
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
[2021-11-28] MEDS: ACETAMINOPHEN 1,000 MG/100 ML BTL 400 MG IVPB (13:24)
[2021-11-28] MEDS: Normal Saline 500 ML IV (13:25)
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
--- NOTE | 2021-11-28 13:37 | DI.VRAD_ITS ---
PROCEDURE INFORMATION: Exam: XR Right Hand Exam date and time: 11/28/2021 1:13 PM Age: 65 years old Clinical indication: Swelling; Hand; Right TECHNIQUE: Imaging protocol: XR Right hand. Views: 3 or more views. COMPARISON: CR XR WRIST RT COMPLETE 11/28/2021 1:11 PM FINDINGS: Bones/joints: There is no acute fracture or dislocation. Soft tissues: There is dorsal soft tissue swelling of the wrist. IMPRESSION: No acute fracture or dislocation. Dictated and Authenticated by: Jacques Amor MD. Ordering:JANNA Farrell MD
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
== END 2021-11-28 15:18 | disposition home or self-care (01) ==
PROVIDERS: Emergency Provider Physician Assistant; PCP Nurse Practitioner Family
DX: S60.211A Contusion of right wrist, initial encounter (principal); S70.12XA Contusion of left thigh, initial encounter; M25.512 Pain in left shoulder; M25.511 Pain in right shoulder; R07.89 Other chest pain; M54.9 Dorsalgia, unspecified; R51.9 Headache, unspecified; V49.49XA Driver injured in collision with other motor vehicles in traffic accident, initial encounter
CPT/HCPCS: 36415; 73552; 74177; 80053; 96361; 96374; 99285; 70450; 71260; 72125; 73110; 73130; 85025; 99284; J0131

== ENCOUNTER → 2021-12-18 01:24 | Outpatient (CLI) | payer MEDICARE, MEDICAID, SELFPAY ==
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
== END ==
PROVIDERS: PCP Nurse Practitioner Family; Visit Provider Family Medicine
DX: S60.211A Contusion of right wrist, initial encounter (principal)
CPT/HCPCS: 73110

== ENCOUNTER 2022-01-06 11:39 | Outpatient (CLI) | payer MEDICARE, MEDICAID, SELFPAY ==
--- NOTE | 2022-01-06 11:30 | DI.RAD_ITS ---
Exam(s) XR WRIST RT COMPLETE EXAM: XR WRIST RT COMPLETE CLINICAL HISTORY: right wrist injury. TECHNIQUE: 2D digital imaging was performed. COMPARISON: CR XR WRIST RT COMPLETE from 12/18/2021 FINDINGS: Four views No evidence fracture or carpal dislocation. No significant ulnar variance. No scaphoid fracture see n. No evidence of avascular necrosis bone density is normal. No osseous lesions. IMPRESSION: No significant findings. DATA REPOSITORY: RADIATION DOSE DELIVERED:
== END 2022-01-06 11:40 | disposition home or self-care (01) ==
LOC: DIORS 11:39
PROVIDERS: PCP Nurse Practitioner Family; Referring Provider Nurse Practitioner Family; Visit Provider Physician Assistant
DX: S60.211A Contusion of right wrist, initial encounter (principal); S64.8X1A Injury of other nerves at wrist and hand level of right arm, initial encounter; V89.2XXA Person injured in unspecified motor-vehicle accident, traffic, initial encounter; Y99.8 Other external cause status
CPT/HCPCS: 73110

== ENCOUNTER → 2022-02-11 01:49 | Outpatient (CLI) | payer MEDICARE, MEDICAID, SELFPAY ==
--- NOTE | 2022-02-11 08:15 | DI.RAD_ITS ---
Exam(s) XR SHOULDER LT COMPLETE 2+V EXAM: XR SHOULDER LT COMPLETE 2+V CLINICAL HISTORY: s/p fall, landed on shOULDER, PAIN OVER PROXIMAL HUMERUS,M25.512. TECHNIQUE: 2D digital imaging was performed of the left shoulder. Five images were obtained. AP, G rashey, Y-view and axillary views were obtained. COMPARISON: No exams were available for comparison FINDINGS: BONES: No acute fracture is present. No bony destructive lesion is seen. JOINTS: No dislocation present. Degenerative changes are seen at the acromioclavicular joint. SOFT TISSUE: Normal. IMPRESSION: No acute fracture or dislocation. DATA REPOSITORY: RADIATION DOSE DELIVERED:
== END ==
PROVIDERS: PCP Nurse Practitioner Family; Visit Provider Family Medicine
DX: M25.512 Pain in left shoulder (principal); Z91.81 History of falling
CPT/HCPCS: 73030

== ENCOUNTER 2022-03-05 01:02 | Outpatient (CLI) | payer MEDICARE, MEDICAID, SELFPAY ==
[2022-03-05 12:51] LABS: Calculated LDL 73 mg/dL (<100); Cholesterol 147 mg/dL (<200); HDL Cholesterol 44 mg/dL (40-60); Triglyceride 153 mg/dL (<150)
== END 2022-03-05 01:03 | disposition home or self-care (01) ==
LOC: LOS 01:02
PROVIDERS: PCP Nurse Practitioner Family; Visit Provider Nurse Practitioner Family
DX: I10 Essential (primary) hypertension (principal); E11.9 Type 2 diabetes mellitus without complications
CPT/HCPCS: 36415; 80061

== ENCOUNTER → 2022-05-04 10:14 | Outpatient (BNVA) | payer MEDICARE, MEDICAID, SELFPAY | PROVIDERS: PCP Nurse Practitioner Family; Referring Provider Student in an Organized Health Care Education/Training Program; Visit Provider Nurse Practitioner Adult Health | DX: G56.11 Other lesions of median nerve, right upper limb (principal); I10 Essential (primary) hypertension; E11.319 Type 2 diabetes mellitus with unspecified diabetic retinopathy without macular edema | CPT/HCPCS: 95885; 95908; 99203; 99213 ==

== ENCOUNTER 2022-06-14 14:44 | Outpatient (CLI) | payer MEDICARE, MEDICAID, SELFPAY ==
--- NOTE | 2022-06-14 14:30 | DI.RAD_ITS ---
Exam(s) XR SHOULDER RT COMPLETE 2+V EXAM: XR SHOULDER RT COMPLETE 2+V CLINICAL HISTORY: right shoulder pain, supracliavicular/SC. TECHNIQUE: 2D digital imaging was performed. Five views. COMPARISON: CR XR SHOULDER LT COMPLETE 2+V from 02/11/2022 FINDINGS: BONES: No acute fracture is present. No bony destructive lesion is seen. There is spurring at the gl enoid. There is spurring at the tip of the acromion. JOINTS: No dislocation present. Humeral head is superiorly positioned, beneath the acromion, consist ent with chronic rotator cuff tear. Glenohumeral joint space is not optimally profiled no definite n arrowing is seen. SOFT TISSUE: Normal. IMPRESSION: Degenerative changes and chronic rotator cuff tear. DATA REPOSITORY: RADIATION DOSE DELIVERED:
== END 2022-06-14 14:45 | disposition home or self-care (01) ==
PROVIDERS: PCP Nurse Practitioner Family; Visit Provider Student in an Organized Health Care Education/Training Program
DX: M19.011 Primary osteoarthritis, right shoulder
CPT/HCPCS: 99215; 73030

== ENCOUNTER 2022-06-15 04:04 | Outpatient (CLI) | payer MEDICARE, MEDICAID, SELFPAY ==
[2022-06-15 12:54] LABS: Anion Gap 9.2 mmol/L (3-11); BUN 15 mg/dL (7-18); CO2 31.8 mmol/L (21.0-32.0); CREATININE 0.9 mg/dL (0.55-1.02); Calcium 9.3 mg/dL (8.5-10.1); Chloride 98 mmol/L (98-107); Estimated GFR 69.64 (mL/min/1.73m2); Glucose 256 mg/dL (74-106); Potassium 3.9 mmol/L (3.5-5.1); Sodium 139 mmol/L (136-145)
[2022-06-15 14:34] LABS: Hemoglobin A1C 7.2 % (<5.7)
== END 2022-06-15 04:05 | disposition home or self-care (01) ==
LOC: LOS 04:04
PROVIDERS: PCP Nurse Practitioner Family; Visit Provider Nurse Practitioner Family
DX: I10 Essential (primary) hypertension (principal); E11.40 Type 2 diabetes mellitus with diabetic neuropathy, unspecified
CPT/HCPCS: 36415; 80048; 83036

== ENCOUNTER 2022-11-01 20:09 | Emergency (ER) | payer OTHER, MEDICAID, SELFPAY ==
[2022-11-01 20:11] VITALS: BP 153/81; PULSE 105; RESP 18; TEMP 37.1; O2SAT 96
--- NOTE | 2022-11-01 20:15 | DI.CT_ITS ---
Exam(s) CT HEAD CERVICAL SPINE WO EXAM: CT HEAD CERVICAL SPINE WO CLINICAL HISTORY: pain s/p fall. TECHNIQUE: Imaging Protocol: Axial computed tomography images with coronal and sagittal reformatted images were created and reviewed COMPARISON: CT CT HEAD CERVICAL SPINE WO from 11/28/2021 FINDINGS: Head CT Ventricles and Extra axial spaces: Normal in size and morphology for the patient's age. Hemorrhage: None. Cerebral parenchyma: Mild white matter changes consistent with small vessel disease. Bilateral basal ganglia calcifications. Midline shift: None. Brainstem/Cerebellum: Normal. Calvarium: Normal. Visualized Paranasal sinuses/Mastoids: Mucous retention within left sphenoid sinus, sinuses and masto id air cells otherwise clear. Cervical Spine CT BONES: Vertebral body heights are maintained. Alignment is normal. There is no evidence of acute frac ture. Degenerative disc changes and facet degenerative changes are seen . SOFT TISSUES: No paraspinal hematoma. The airway appears intact. No pneumothorax is seen at the lung apices. IMPRESSION: Head CT: No acute abnormality. C-spine CT: Degenerative changes, no acute abnormality. RADIATION DOSE DELIVERED: 1,422.96mGy.cm Total DLP DATA REPOSITORY: All CT scans at this facility are submitted to the National Radiology Data Registry (NRDR) Dose Index Registry (DIR) with the [employer] ([employer]). RADIATION OPTIMIZATION: All CT scans at this facility use at least one of these dose optimization te chniques: automated exposure control; mA and/or kV adjustment per patient size (includes targeted exa ms where dose is matched to clinical indication); or iterative reconstruction.
--- NOTE | 2022-11-01 20:26 | ED.GENADUL_ITS ---
Discharge Plan Disposition Patient Disposition: Home Condition: Stable Discharge Details Clinical Impression: Traumatic injury of head Primary Care Provider: Aim Valencia ED Provider: Jerome Cabrera Meds and New Rx's Prescriptions: Continued glipizide 10 mg tablet extended release 24hr 20 mg PO DAILY Qty: 180 3RF albuterol sulfate 90 mcg/actuation HFA aerosol inhaler 1 puff IH Q4H PRN (Reason: shortness of breath or wheezing) Qty: 6.7 0RF chlorthalidone 25 mg tablet 25 mg PO DAILY Qty: 90 3RF metformin 500 mg tablet extended release 24 hr 1,000 mg PO BID Qty: 360 3RF Rx Instructions: Take 2 tablets twice a day (DME) Dexcom G6 Glass Loading Equipment Tender Misc See Rx Instructions .ROUTE .MEDSUPPLY Qty: 1 3RF Rx Instructions: Continuous glucose monitor (DME) Dexcom G6 Sensor Device See Rx Instructions .MEDSUPPLY Qty: 3 3RF Rx Instructions: Continuous glucose monitor (DME) Dexcom G6 Transmitter Device See Rx Instructions .MEDSUPPLY Qty: 1 4RF Rx Instructions: Continuous glucose monitor acyclovir 200 mg capsule 200 mg PO Q4H PRN (Reason: Herpes labialis) Qty: 35 6RF Rx Instructions: while awake; give 5 doses in 24 hours (DME) blood-glucose meter [OneTouch Ultra2 Meter] Kit See Rx Instructions .ROUTE .MEDSUPPLY Qty: 1 4RF Rx Instructions: Check blood sugar twice a day (DME) lancets [OneTouch Delica Lancets] 33 gauge misc See Rx Instructions .ROUTE DAILY Qty: 200 4RF Rx Instructions: Check blood sugar twice a day (DME) blood sugar diagnostic Strip See Rx Instructions .ROUTE .MEDSUPPLY Qty: 200 4RF Rx Instructions: Check blood sugar twice a day cyclobenzaprine 10 mg tablet 10 mg PO HS PRN (Reason: muscle spasm) Qty: 30 0RF gabapentin 100 mg capsule 100 mg PO TID Qty: 270 3RF amlodipine 5 mg tablet 5 mg PO DAILY Qty: 90 3RF pravastatin 40 mg tablet 40 mg PO DAILY Qty: 90 3RF sertraline 50 mg tablet 50 mg PO DAILY Qty: 90 3RF Rx Instructions: Take 1 tablet once a day Discharge Instructions Instructions: Concussion (ED) Additional Instructions: Your cat scan did not show concerning findings at this time if you have headaches that continue in a week follow up with your primary care provider if you feel more ill, have severe worsening pain or persistent vomiting return to the emergency department Medical Decision Making 66 yo female with hx of htn, hld, dm, who comes in after a fall and struck her head. She states she was changing sheets on her bed when her dog jumped up on the bed and the patient's legs got caught in the sheets causing her to fall back and strike her head on the cabinet. Denies loc, no vomiting since the fall. She arrives stable speaking clearly and has steady gait. She has a 2cm scalp hematoma to the occiput, no lacs, no bleeding on exam. No midline c/t/l spine tendernress, no chest, abdomen or extremity pain. Given her age and the fall will obtain ct head/c spine. Given lack of pain elsewhere do not feel other imaging indicated, and patient is clear this was a purely mechanical fall. ct shows no acute findings, pt feels better with tylenol and no new pain elsewhere. She is stable for d/c, advised to f/u with pcp if headaches continue the next few days. REturn precautions given Differential Diagnosis Differential Diagnosis: tbi, concussion Imaging Data Radiologic Study: Attestation: I personally reviewed and interpreted this imaging study as follows: Imaging: CT Scan Radiologist's impression: no acute findings HPI General Mode of arrival: ambulatory . Date/Time Provider Initiated Documentation: 11/01/22 20:10 . Limitations to Documentation: no limitations . Information obtained by: patient . History of Present Illness 66 year old F presents to the emergency department with the chief complaint of head pain, described as moderate, Quality is described as aching, Patient started experiencing this hour(s) (1) and it has been constant. No relieving factors improve symptom(s), No exacerbating factors reported . Patient notes no other symptoms.. Patient did receive the following treatments prior to arrival, none Related Data Home Medications Medication Instructions Recorded Confirmed acyclovir 200 mg capsule 200 mg PO Q4H PRN Herpes labialis 07/29/20 08/19/22 #35 caps blood sugar diagnostic #200 ea 07/15/21 11/01/22 blood-glucose meter (OneTouch #1 ea 12/15/21 04/03/23 Ultra2 Meter kit) lancets 33 gauge (OneTouch Delica #200 ea 07/15/21 11/01/22 Lancets) glipizide 10 mg tablet, extended 20 mg PO DAILY #180 tab-caps 04/09/22 11/01/22 release 24 hr blood-glucose meter,continuous #1 ea 05/12/22 11/01/22 (Dexcom G6 Glass Loading Equipment Tender) blood-glucose sensor (Dexcom G6 #3 ea 05/12/22 11/01/22 Sensor device) blood-glucose transmitter (Dexcom #1 ea 05/12/22 11/01/22 G6 Transmitter device) cyclobenzaprine 10 mg tablet 10 mg PO HS PRN muscle spasm #30 05/28/22 11/01/22 tabs albuterol sulfate 90 mcg/actuation 1 puff inhalation Q4H PRN 05/31/22 11/01/22 aerosol inhaler shortness of breath or wheezing #6.7 grams gabapentin 100 mg capsule 100 mg PO TID #270 caps 07/19/22 11/01/22 amlodipine 5 mg tablet 5 mg PO DAILY #90 tab-caps 08/16/22 11/01/22 pravastatin 40 mg tablet 40 mg PO DAILY #90 tab-caps 08/16/22 11/01/22 sertraline 50 mg tablet 50 mg PO DAILY #90 tabs 08/16/22 11/01/22 chlorthalidone 25 mg tablet 25 mg PO DAILY #90 tab-caps 08/19/22 11/01/22 metformin 500 mg tablet,extended 1,000 mg PO BID #360 tabs 08/19/22 11/01/22 release 24 hr Previous Rx's Medication Instructions Recorded acyclovir 200 mg capsule 200 mg PO Q4H PRN Herpes labialis 07/29/20 #35 caps blood sugar diagnostic #200 ea 07/15/21 blood-glucose meter (OneTouch #1 ea 07/15/21 Ultra2 Meter kit) lancets 33 gauge (OneTouch Delica #200 ea 07/15/21 Lancets) glipizide 10 mg tablet, extended 20 mg PO DAILY #180 tab-caps 04/09/22 release 24 hr blood-glucose meter,continuous #1 ea 05/12/22 (Dexcom G6 Glass Loading Equipment Tender) blood-glucose sensor (Dexcom G6 #3 ea 05/12/22 Sensor device) blood-glucose transmitter (Dexcom #1 ea 05/12/22 G6 Transmitter device) cyclobenzaprine 10 mg tablet 10 mg PO HS PRN muscle spasm #30 05/28/22 tabs albuterol sulfate 90 mcg/actuation 1 puff inhalation Q4H PRN 05/31/22 aerosol inhaler shortness of breath or wheezing #6.7 grams gabapentin 100 mg capsule 100 mg PO TID #270 caps 07/19/22 amlodipine 5 mg tablet 5 mg PO DAILY #90 tab-caps 08/16/22 pravastatin 40 mg tablet 40 mg PO DAILY #90 tab-caps 08/16/22 sertraline 50 mg tablet 50 mg PO DAILY #90 tabs 08/16/22 chlorthalidone 25 mg tablet 25 mg PO DAILY #90 tab-caps 08/19/22 metformin 500 mg tablet,extended 1,000 mg PO BID #360 tabs 08/19/22 release 24 hr Allergies Allergy/AdvReac Type Severity Reaction Status Date / Time Penicillins Allergy Severe Verified 11/01/22 20:20 Tetanus Vaccines and Toxoid Allergy Intermediate Verified 11/01/22 20:20 [Tetanus Vaccines & Toxoid] lisinopril AdvReac Intermediate COUGH Verified 11/01/22 20:20 General Stated Complaint: HeadInjury NICOLE: 3 Review of Systems All systems reviewed & are unremarkable except as noted in HPI and below Constitutional Constitutional: Denies chills, Denies fever(s) and Denies weakness Cardiovascular Cardiovascular: Denies chest pain and Denies dyspnea Respiratory Respiratory: Denies cough and Denies dyspnea Gastrointestinal Gastrointestinal: Denies abdominal pain, Denies nausea and Denies vomiting Musculoskeletal Musculoskeletal: Denies joint swelling Neurologic Neurologic: Denies weakness PFSH All Active Problems (Updated 11/01/22 @ 21:46 by Jerome Cabrera MD) Traumatic injury of head (Acute) Arthropathy of right shoulder (Acute) 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) Numbness and tingling of hand (Acute) Acute low back pain (Acute) Essential hypertension (Chronic) Hyperlipidemia (Chronic) Major depressive disorder (Chronic) Diabetic neuropathy (Chronic) Low back pain (Chronic) Medical History Dislocation of right shoulder joint (~2016) Left rotator cuff tear MRI on 03/28/18 shows full-thickness tear of anterior supraspinatus Tear of right rotator cuff Surgical History History of bilateral ligation of fallopian tubes S/P LASIK surgery of both eyes Status post carpal tunnel release Status post cholecystectomy (~1995) Status post tonsillectomy and adenoidectomy Family History Mother Heart disease Father Heart disease Sister Hypertension Brother , 69 from metastatic colon cancer Heart disease Colon cancer Daughter No problems noted. Daughter No problems noted. Son No problems noted. Maternal Grandfather No problems noted. Maternal Grandmother No problems noted. Paternal Grandfather No problems noted. Paternal Grandmother No problems noted. Social History Smoking/Tobacco Use Status: Never Second Hand Exposure: Yes Smoking risk assessment performed?: Yes Alcohol Intake: never Drug use: Never Substance use type: does not use Current gender identity: female What type of physical activity do you participate in: none Do you feel safe in your relationship?: Yes Additional Social history: Decreased vision Exam Const General: no acute distress Orientation: alert HENMT Head: no palpable skull fracture Ears: external ears normal General nose exam: external nose normal Mouth: moist mucous membranes Eyes General: appearance normal, both eyes and all related structures Neck Neck: normal visual inspection, trachea midline and nontender Resp Effort & Inspection: normal respiratory effort and able to speak in complete sentences Cardio Rate: regular rate Skin General skin exam: no rashes or lesions noted Neuro General: patient alert and patient oriented x3 Extrem General: normal to inspection Psych Mental Status: mental status grossly normal Course Vital Signs Vital signs: Vital Signs Temperature 37.1 C 11/01/22 20:11 Pulse 105 H 11/01/22 20:11 Respiratory Rate 18 11/01/22 20:11 Blood Pressure 153/81 H 11/01/22 20:11 Pulse Oximetry 96 11/01/22 20:11 Temperature 37.1 C 11/01/22 20:11 Temperature Source Oral 11/01/22 20:11 Pulse 105 H 11/01/22 20:11 Respiratory Rate 18 11/01/22 20:11 Respiratory Effort Normal 11/01/22 20:19 Blood Pressure 153/81 H 11/01/22 20:11 Blood Pressure Position Standing 11/01/22 20:11 Pulse Oximetry 96 11/01/22 20:11 Oxygen Delivery Method Room Air 11/01/22 20:11 Oxygen Flow Rate 0 11/01/22 20:11 Pain Level 9 11/01/22 20:11
[2022-11-01] MEDS: Acetaminophen 500 MG TAB 1000 MG PO (20:36)
--- NOTE | 2022-11-01 21:36 | DI.VRAD_ITS ---
PROCEDURE INFORMATION: Exam: CT Head Without Contrast Exam date and time: 11/01/2022 9:04 PM Age: 66 years old Clinical indication: Other: Pain S/P fall TECHNIQUE: Imaging protocol: Computed tomography of the head without contrast. Radiation optimization: All CT scans at this facility use at least one of these dose optimization techniques: automated exposure control; mA and/or kV adjustment per patient size (includes targeted exams where dose is matched to clinical indication); or iterative reconstruction. COMPARISON: CT HEAD CERVICAL SPINE WO 11/28/2021 12:48 PM FINDINGS: Brain: Bilateral basal ganglia calcifications.There are moderate periventricular and subcortical lucencies consistent with chronic microvascular ischemic changes.The bray-white differentiation is maintained. No hemorrhage. No edema. Cerebral ventricles: No ventriculomegaly. Paranasal sinuses: Visualized sinuses are unremarkable. No fluid levels. Mastoid air cells: Visualized mastoid air cells are well aerated. Orbital cavities: Bilateral cataract surgery. Bones/joints: Unremarkable. No acute fracture. Soft tissues: Unremarkable. IMPRESSION: 1. No acute intracranial abnormality. 2. Chronic microvascular ischemic changes. PROCEDURE INFORMATION: Exam: CT Cervical Spine Without Contrast Exam date and time: 11/01/2022 9:04 PM Age: 66 years old Clinical indication: Other: Pain S/P fall TECHNIQUE: Imaging protocol: Computed tomography of the cervical spine without contrast. Radiation optimization: All CT scans at this facility use at least one of these dose optimization techniques: automated exposure control; mA and/or kV adjustment per patient size (includes targeted exams where dose is matched to clinical indication); or iterative reconstruction. COMPARISON: CT HEAD CERVICAL SPINE WO 11/28/2021 12:48 PM FINDINGS: Bones/joints: There is multilevel uncovertebral and facet hypertrophy with neural foramina narrowing. Multilevel degenerative disc disease. No acute fracture. No spondylolisthesis. Lungs: Lung apices are normal. Soft tissues: Unremarkable. IMPRESSION: No acute abnormality. Dictated and Authenticated by: Justen Salgado MD. Ordering:ALEC Cano MD
[2022-11-01 21:56] VITALS: BP 149/61; PULSE 73; RESP 18; O2SAT 93
== END 2022-11-01 21:59 | disposition home or self-care (01) ==
PROVIDERS: Emergency Provider Emergency Medicine; PCP Nurse Practitioner Family
DX: S00.03XA Contusion of scalp, initial encounter (principal); W22.03XA Walked into furniture, initial encounter
CPT/HCPCS: 99283; 99284; 70450; 72125

== ENCOUNTER → 2023-05-06 14:22 | Outpatient (CLI) | payer OTHER, MEDICAID, SELFPAY ==
--- NOTE | 2023-05-06 12:15 | DI.US_ITS ---
Exam(s) US EXTREMITY VENOUS BI EXAM: US EXTREMITY VENOUS BI CLINICAL HISTORY: r/o DVT, LEG SWELLING, M79.89 OTHER SOFT TISSUE DISORDERS. TECHNIQUE: Bilateral lower extremity venous ultrasound performed using grayscale, color-flow, and sp ectral Doppler analysis. COMPARISON: No exams were available for comparison FINDINGS: The bilateral common femoral, femoral and popliteal veins demonstrate normal compressibility, augment ation, and color Doppler. The posterior tibial veins are patent. There is a right-sided Farrell's cyst measuring 4.2 x 0.8 x 2.2 cm. There is edema in the subcutaneous fat of the lower legs. IMPRESSION: Right: Negative for DVT. Small Farrell's cyst. Left: Negative for DVT DATA REPOSITORY:
== END ==
PROVIDERS: PCP Nurse Practitioner Family; Visit Provider Physician Assistant
DX: M79.89 Other specified soft tissue disorders (principal)
CPT/HCPCS: 93970

== ENCOUNTER 2023-05-26 13:18 | Outpatient (REF) | payer OTHER, MEDICAID, SELFPAY ==
[2023-05-26 21:53] LABS: Bacteria Rare HPF (Negative); Bilirubin Negative (Negative); Blood Negative (Negative); C & S Indicated? No; Casts Negative LPF (Negative); Clarity Sl Cloudy (Clear); Crystals Moderate Amorphous HPF (Negative); Epithelial Cells Rare HPF (Negative); Glucose 100 mg/dL (Negative); Ketones Negative (Negative); Leukocyte Esterase Trace (Negative); Mucus Negative (Negative); Nitrite Negative (Negative); RBC 0-2 HPF (0-2); Specific Gravity 1.025 (1.005-1.025); Urobilinogen 0.2 mg/dL (Up to 0.2); WBC 0-2 HPF (0-5); pH 5.5 (5-8)
== END 2023-05-26 13:19 | disposition home or self-care (01) ==
LOC: LBN 13:18
PROVIDERS: PCP Nurse Practitioner Family; Visit Provider Nurse Practitioner Family
DX: R32 Unspecified urinary incontinence (principal)
CPT/HCPCS: 81003; 81015

== ENCOUNTER 2023-07-18 03:56 | Outpatient (CLI) | payer OTHER, SELFPAY ==
[2023-07-18 12:44] LABS: HCT 43.1 % (36.0-46.0); HGB 14.1 g/dL (11.2-15.7); MCHC 32.7 % (32.0-36.0); MCV 89 fL (80-95); MPV 9.5 fL (8.0-11.0); Platelet Count 398 10^3/uL (130-400); RBC 4.86 10^6/uL (3.93-5.22); RDW-SD 42.5 fL; WBC 11.29 10^3/uL (4.4-10.8)
[2023-07-18 13:04] LABS: Anion Gap 4.6 mmol/L (3-11); BUN 15 mg/dL (7-18); CO2 34.4 mmol/L (21.0-32.0); CREATININE 0.8 mg/dL (0.55-1.02); Calcium 9.4 mg/dL (8.5-10.1); Calculated LDL 60 mg/dL (<100); Chloride 99 mmol/L (98-107); Cholesterol 139 mg/dL (<200); Estimated GFR 79.71 (mL/min/1.73m2); Glucose 172 mg/dL (74-106); HDL Cholesterol 46 mg/dL (40-60); Potassium 3.4 mmol/L (3.5-5.1); Sodium 138 mmol/L (136-145); TSH (W/Ref FT4) 3.42 uIU/mL (0.36-3.74); Triglyceride 166 mg/dL (<150)
[2023-07-18 13:08] LABS: Hemoglobin A1C 6.5 % (<5.7)
== END 2023-07-18 03:57 | disposition home or self-care (01) ==
LOC: LOS 03:56
PROVIDERS: Nurse Practitioner Family; PCP Nurse Practitioner Family; Visit Provider Nurse Practitioner Family
DX: E11.319 Type 2 diabetes mellitus with unspecified diabetic retinopathy without macular edema (principal); E78.5 Hyperlipidemia, unspecified; F33.9 Major depressive disorder, recurrent, unspecified; I10 Essential (primary) hypertension; R32 Unspecified urinary incontinence; Z00.00 Encounter for general adult medical examination without abnormal findings
CPT/HCPCS: 36415; 80048; 80061; 85027; 83036; 84443

== ENCOUNTER → 2023-11-14 09:12 | Outpatient (BNVA) | payer MEDICARE, SELFPAY | PROVIDERS: PCP Nurse Practitioner Family; Referring Provider Nurse Practitioner Family; Visit Provider Nurse Practitioner Gerontology | DX: N39.46 Mixed incontinence (principal) | CPT/HCPCS: 51798; 99215 ==

== ENCOUNTER → 2024-05-10 14:07 | Outpatient (BNVA) | payer MEDICARE, SELFPAY | PROVIDERS: PCP Nurse Practitioner Family; Visit Provider Nurse Practitioner Gerontology | DX: N39.46 Mixed incontinence (principal) | CPT/HCPCS: 99213 ==

== ENCOUNTER 2024-06-13 01:09 | Outpatient (CLI) | payer MEDICARE, SELFPAY ==
--- NOTE | 2024-06-13 06:45 | DI.RAD_ITS ---
Exam(s) XR KNEE RT 3V AP,LAT,JENNA EXAM: XR KNEE RT 3V AP,LAT,JENNA CLINICAL HISTORY: right knee pain,m25.561. TECHNIQUE: 2D digital imaging was performed. Three views. COMPARISON: CR XR knee RT 3V AP,lat,jenna from 06/30/2018 MR MR lower joint RT wo from 07/06/2018 FINDINGS: BONES: No acute fracture is present. No bony destructive lesion is seen. JOINTS: Moderate to severe narrowing of the lateral femoral tibial joint space. Mild to moderate per iarticular spurring. Widening of the medial femoral tibial joint space and valgus angulation. Mild spurring at the articular aspect of the patella. No joint effusion is seen. SOFT TISSUE: Normal. 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 DATA REPOSITORY: RADIATION DOSE DELIVERED:
--- NOTE | 2024-06-13 06:45 | DI.MAMMO_ITS ---
Exam(s) MAMMO SCREENING EXAM: MAMMO SCREENING CLINICAL HISTORY: screening,z12.39 TECHNIQUE: Mammograms were interpreted according to the usual protocol including computer analysis w [employer] CAD system, tomosynthesis and C-view imaging. COMPARISON: 2013 through 2021 FINDINGS: The breasts are composed of scattered fibroglandular densities, Breast Density category B. No suspicious masses or suspicious microcalcifications are seen. No skin thickening or abnormal axillary lymph nodes are seen. There has been no significant change from prior exams. IMPRESSION: BI-RADS Category 1, Negative mammogram Yearly screening mammography is recommended. Breast Density - Category B, scattered fibroglandular densities. A negative radiographic report should not delay biopsy if a dominant or clinically suspicious mass is present. Up to ten percent of cancers are not identified on mammography. A negative report may reinforce clinical impression. Adenosis and dense breasts may obscure an underlying neoplasm. False positive reports average 6 to 10%. Patient will receive a letter notifying them of these results.
== END 2024-06-13 01:29 ==
LOC: DI 01:09
PROVIDERS: PCP Nurse Practitioner Family; Visit Provider Nurse Practitioner Family
DX: M17.11 Unilateral primary osteoarthritis, right knee (principal); Z12.31 Encounter for screening mammogram for malignant neoplasm of breast
CPT/HCPCS: 73562; 77063; 77067

== ENCOUNTER 2024-10-15 10:35 | Outpatient (CLI) | payer MEDICARE, SELFPAY ==
--- NOTE | 2024-10-15 10:00 | DI.US_ITS ---
Exam(s) US EXTREMITY VENOUS BI EXAM: US EXTREMITY VENOUS BI CLINICAL HISTORY: BLE swelling M79.89 Soft tissue disorders. TECHNIQUE: Bilateral lower extremity venous ultrasound performed using grayscale, color-flow, and sp ectral Doppler analysis. COMPARISON: No exams were available for comparison FINDINGS: The bilateral common femoral, femoral and popliteal veins demonstrate normal compressibility, augment ation, and color Doppler. The posterior tibial and peroneal veins are patent. There is edema in thes e subcutaneous fat of the lower legs bilaterally. IMPRESSION: Right: Negative for DVT Left: Negative for DVT DATA REPOSITORY:
== END 2024-10-15 10:55 ==
LOC: DI 10:35
PROVIDERS: PCP Nurse Practitioner Family; Visit Provider Nurse Practitioner Family
DX: M79.89 Other specified soft tissue disorders (principal)
CPT/HCPCS: 93970

== ENCOUNTER 2024-10-15 14:11 | Outpatient (CLI) | payer MEDICARE, SELFPAY ==
[2024-10-15 12:45] LABS: Anion Gap 6.8 mmol/L (3-11); BUN 14 mg/dL (7-18); CO2 34.2 mmol/L (21.0-32.0); CREATININE 0.8 mg/dL (0.55-1.02); Calcium 9.1 mg/dL (8.5-10.1); Chloride 101 mmol/L (98-107); Estimated GFR 79.22 (mL/min/1.73m2); Glucose 140 mg/dL (74-106); Potassium 3.1 mmol/L (3.5-5.1); Sodium 142 mmol/L (136-145)
[2024-10-15 12:48] LABS: Hemoglobin A1C 6.8 % (<5.7)
[2024-10-16 09:55] LABS: HBs Antibody, Quant 4.4 mIU/mL (See Note); Hep B Surface Ab Negative (See Note); Hepatitis B Core Antibody Negative (Negative); Hepatitis B Surface Antigen Negative (Negative)
[2024-10-16 10:32] LABS: HIV-1/2 Ag & Ab Screen Negative (Negative)
[2024-10-16 10:49] LABS: Hepatitis C Ab w Rflx HCV PCR Negative (Negative)
== END 2024-10-15 14:12 | disposition home or self-care (01) ==
LOC: LBO 14:11
PROVIDERS: PCP Nurse Practitioner Family; Visit Provider Nurse Practitioner Family
DX: Z11.59 Encounter for screening for other viral diseases (principal); E11.319 Type 2 diabetes mellitus with unspecified diabetic retinopathy without macular edema; Z11.4 Encounter for screening for human immunodeficiency virus [HIV]
CPT/HCPCS: 36415; 80048; 86704; 86706; 86803; 87340; 87389; 83036

== ENCOUNTER 2025-01-28 12:43 | Outpatient (CLI) | payer MEDICARE, SELFPAY ==
--- NOTE | 2025-01-28 11:45 | DI.RAD_ITS ---
Exam(s) XR SHOULDER RT COMPLETE 2+V EXAM: XR SHOULDER RT COMPLETE 2+V CLINICAL HISTORY: fall, W19.XXXA. TECHNIQUE: 2D digital imaging was performed. Five views. COMPARISON: CR XR SHOULDER RT COMPLETE 2+V from 06/14/2022 FINDINGS: BONES: No acute fracture is present. No bony destructive lesion is seen. Prominent spur at the undersurface of the acromion. JOINTS: No dislocation present. Degenerative changes of the AC joint and glenohumeral joint. Humeral head is superiorly positioned consistent with chronic rotator cuff tear. SOFT TISSUE: Normal. IMPRESSION: Degenerative changes. No acute abnormality. DATA REPOSITORY: RADIATION DOSE DELIVERED:
--- NOTE | 2025-01-28 11:45 | DI.RAD_ITS ---
Exam(s) XR CERVICAL SPINE COMP 4-5V EXAM: XR CERVICAL SPINE COMP 4-5V CLINICAL HISTORY: fall, neck pain, W19.XXXA. TECHNIQUE: 2D digital imaging was performed. Five views were performed. COMPARISON: No exams were available for comparison FINDINGS: BONES: No fracture or destructive lesion. DISKS: Disc space narrowing and endplate osteophytes from C4-5 through C7 T1. Mild to moderate neural foraminal narrowing at C5-6 and C6-7 bilaterally. ALIGNMENT: Cervical spinal alignment is within normal limits. The odontoid and atlantoaxial articulations are normal. SOFT TISSUE: Normal. The lung apices are clear. IMPRESSION: Degenerative changes. No acute abnormality. DATA REPOSITORY: RADIATION DOSE DELIVERED:
--- NOTE | 2025-01-28 11:45 | DI.RAD_ITS ---
Exam(s) XR RIBS BI INCLUDE CHEST EXAM: XR RIBS BI INCLUDE CHEST CLINICAL HISTORY: rib pain, bilateral, W19.XXXA TECHNIQUE: 2D digital imaging was performed. COMPARISON: CT CT CHEST/ABD/PEL W from 11/28/2021 FINDINGS: MEDIASTINUM: Normal. HEART: Normal. PULMONARY VASCULATURE: Normal. LUNGS: Clear. PLEURAL SPACE: No pleural effusion or pneumothorax. BONE:Normal no displaced rib fractures. Degenerative changes are noted in the shoulders, right greater than left. Evidence of bilateral chronic rotator cuff tear. Degenerative changes are also seen in the spine. IMPRESSION: 1. No acute pulmonary findings. 2. Unremarkable ribs. DATA REPOSITORY: RADIATION DOSE DELIVERED:
--- NOTE | 2025-01-28 11:45 | DI.RAD_ITS ---
Exam(s) XR WRIST RT COMPL NAVICULAR EXAM: XR WRIST RT COMPL NAVICULAR CLINICAL HISTORY: fall, injury, W19.XXXA. TECHNIQUE: 2D digital imaging was performed. Three views. COMPARISON: CR XR WRIST RT COMPLETE from 01/06/2022 FINDINGS: BONES: No acute fracture is present. No bony destructive lesion is seen. JOINTS: The carpal bones are normally aligned. Mild degenerative changes. SOFT TISSUE: Normal. IMPRESSION: Mild degenerative changes. No acute abnormality. DATA REPOSITORY: RADIATION DOSE DELIVERED:
== END 2025-01-28 13:03 ==
LOC: DI 12:44
PROVIDERS: PCP Nurse Practitioner Family; Visit Provider Physician Assistant
DX: M54.2 Cervicalgia (principal); W19.XXXA Unspecified fall, initial encounter
CPT/HCPCS: 71046; 71110; 72050; 73030; 73110

== ENCOUNTER 2025-06-12 10:23 | Outpatient (CLI) | payer MEDICARE, SELFPAY ==
[2025-06-12 14:27] LABS: Anion Gap 5.5 mmol/L (3-11); BUN 16 mg/dL (9-23); CO2 31.4 mmol/L (20.0-31.0); Calcium 10.0 mg/dL (8.3-10.6); Chloride 99 mmol/L (98-107); Cholesterol 147 mg/dL (<200); Glucose 173 mg/dL (74-106); HDL Cholesterol 60 mg/dL (>40); Potassium 4.0 mmol/L (3.5-5.1); Sodium 136 mmol/L (136-145)
== END 2025-06-12 10:24 | disposition home or self-care (01) ==
LOC: LOS 10:24
PROVIDERS: PCP Nurse Practitioner Family; Visit Provider Nurse Practitioner Family
DX: E78.5 Hyperlipidemia, unspecified (principal); E87.6 Hypokalemia
CPT/HCPCS: 36415; 80048; 80061